=== PATIENT | female | born 1930 | race Caucasian/White ===

== ENCOUNTER 2016-05-03 15:46 | Inpatient (IN) | payer MEDICARE, OTHER ==
[2016-05-03] MEDS ORDERED: HYDROcodone/Acetaminophen 10/325 mg Tablet PO PRN ×2 (20:05→20:27)
[2016-05-03] MEDS ORDERED: Bisacodyl 5 MG TAB PO PRN (20:31)
[2016-05-03] MEDS ORDERED: Non-Formulary Item 1 EACH (Atorvastatin Calcium [Lipitor] 20 MG) PO SCH (21:00)
[2016-05-03] MEDS: Simethicone Chewable 80 MG TAB PO PRN (21:15)
[2016-05-03] MEDS: HYDROcodone/Acetaminophen 10/325 mg Tablet PO PRN (21:15)
[2016-05-03] MEDS: Aspirin 325 MG TAB PO SCH (21:15)
[2016-05-03] MEDS: Montelukast Sodium 10 mg Tablet PO SCH (21:15)
[2016-05-03] MEDS ORDERED: Atorvastatin Calcium 10 MG TAB PO SCH (21:30)
[2016-05-04] MEDS: Levothyroxine Sodium 50 MCG TAB PO SCH (05:56)
[2016-05-04] MEDS ORDERED: GARLIC PO SCH (09:00)
[2016-05-04] MEDS ORDERED: Turmeric Root Extract [Turmeric] 500 MG PO SCH (09:00)
[2016-05-04] MEDS ORDERED: Cranberry [Cranberry] 400 MG PO SCH (09:00)
[2016-05-04] MEDS ORDERED: [UNRECOGNIZED DRUG - OTHER] PO SCH (09:00)
[2016-05-04] MEDS ORDERED: Vit A,C & E/Lutein/Minerals Tablet PO SCH (09:00)
[2016-05-04] MEDS: HYDROcodone/Acetaminophen 10/325 mg Tablet PO PRN ×2 (09:22→13:56)
[2016-05-04] MEDS: Milk Of Magnesia 30 ML UDCUP PO PRN (09:23)
[2016-05-04] MEDS: Aspirin 325 MG TAB PO SCH ×2 (09:24→20:34)
[2016-05-04] MEDS: Hydrochlorothiazide 25 MG TAB PO SCH (09:25)
[2016-05-04] MEDS: Nebivolol HCl 5 MG TAB PO SCH (09:25)
[2016-05-04] MEDS: Simethicone Chewable 80 MG TAB PO PRN (19:18)
[2016-05-04] MEDS: Montelukast Sodium 10 mg Tablet PO SCH (20:35)
[2016-05-04] MEDS: Atorvastatin Calcium 10 MG TAB PO SCH (20:35)
[2016-05-05] MEDS: HYDROcodone/Acetaminophen 10/325 mg Tablet PO PRN ×3 (02:01→22:58)
[2016-05-05] MEDS: Levothyroxine Sodium 50 MCG TAB PO SCH (05:58)
[2016-05-05 06:59] LABS: Hematocrit 32.1 % (36.0-47.0); Mean Platelet Volume 7.3 fL (7.4-10.4); Neutrophil 49 % (42-75); Reactive Lymphocytes 1 % (0-10); Red Blood Cell (RBC) Count 3.65 mill/uL (4.20-5.40); White Blood Cell (WBC) Count 4.3 thou/uL (4.8-10.8)
[2016-05-05] MEDS: Aspirin 325 MG TAB PO SCH ×2 (09:30→21:01)
[2016-05-05] MEDS: Nebivolol HCl 5 MG TAB PO SCH (09:31)
[2016-05-05] MEDS: Hydrochlorothiazide 25 MG TAB PO SCH (09:32)
[2016-05-05] MEDS: Milk Of Magnesia 30 ML UDCUP PO PRN (09:35)
[2016-05-05] MEDS ORDERED: SALINE 0.65% EA NARE PRN (20:14)
[2016-05-05] MEDS: Montelukast Sodium 10 mg Tablet PO SCH (21:02)
[2016-05-05] MEDS: Atorvastatin Calcium 10 MG TAB PO SCH (21:02)
--- NOTE | 2016-05-06 01:00 | HP ---
DATE OF ADMISSION: 05/03/2016 SWING BED ADMIT NOTE: REASON FOR TRANSFER: Physical therapy, occupational therapy, status post right knee replacement. HISTORY OF PRESENT ILLNESS: The patient is an 85-year-old white female extremely pleasant, who had progressive worsening degenerative joint disease of the knee requiring a right knee replacement. Th e patient underwent right knee replacement without complications. She lives alone though and contin ues to need inpatient physical therapy and occupational therapy and will be transferred to [facility] for continued physical therapy and occupational therapy. PAST MEDICAL HISTORY: 1. Hypertension, controlled. 2. Gastroesophageal reflux disease. 3. Degenerative joint disease of the joints. 4. Hypothyroidism. 5. History of thrombocytopenia, not requiring medications. REVIEW OF SYSTEMS: CONSTITUTIONAL: The patient denies fevers, chills, night sweats, and weakness. RESPIRATORY: No significant cough, no sore throat, no URI-like symptoms. NECK: Showed no masses. CARDIOVASCULAR: The patient denies any chest pain nor shortness of breath. GASTROINTESTINAL: The patient denies any significant nausea or vomiting. Appetite is good. She krueger s had some constipation, but has been treated appropriately. GENITOURINARY: The patient denies any dysuria, hematuria or change in urinary frequency. EXTREMITIES: The patient states her right knee pain is controlled with oral medications. SKIN: The patient denies any recent rashes nor new skin lesions. The patient denies any bleeding d isorders. The patient denies any significant depression and she has had no recent visual changes. PHYSICAL EXAMINATION: VITAL SIGNS: Blood pressure 142/68, respiratory rate was 16, pulse was 82. GENERAL: White female, alert and oriented x3, in no obvious distress. HEENT: Atraumatic, normocephalic. Extraocular movements are intact. Pupils are equal, round, and reactive to light and accommodation. Oropharynx, mucous membranes were moist. No exudate, discharg e or lesions. CHEST: Clear to auscultation bilaterally without rales or wheezes. HEART: Regular rate and rhythm. ABDOMEN: Soft, nontender, nondistended, no masses were palpated. EXTREMITIES: Right knee was bandaged. There was some bruising around the knee with some mild swell ing consistent with recent knee replacement. BACK: No CVA or vertebral tenderness. ASSESSMENT AND PLAN: 1. Status post right knee replacement. The patient appears to be doing well. She has good attitud e and should recovered, but will need to continue inpatient swing bed skilled care for OT and PT sin ce she lives alone and has difficulty ambulating at this time and transfer. 2. Hypertension, controlled. Continue current therapy. 3. Hypothyroidism. Continue current medication. 4. Gastroesophageal reflux disease, stable. 5. Mild thrombocytopenia perioperatively. We will manage this and watch her closely. DISPOSITION: Plan will be to discharged to home probably in less than 14 days of inpatient therapy.
[2016-05-06] MEDS: Levothyroxine Sodium 50 MCG TAB PO SCH (05:36)
[2016-05-06] MEDS: Aspirin 325 MG TAB PO SCH ×2 (09:28→20:19)
[2016-05-06] MEDS: Hydrochlorothiazide 25 MG TAB PO SCH (09:29)
[2016-05-06] MEDS: Nebivolol HCl 5 MG TAB PO SCH (09:29)
[2016-05-06] MEDS: HYDROcodone/Acetaminophen 10/325 mg Tablet PO PRN ×2 (09:33→20:19)
[2016-05-06] MEDS: Milk Of Magnesia 30 ML UDCUP PO PRN (20:18)
[2016-05-06] MEDS: Atorvastatin Calcium 10 MG TAB PO SCH (20:19)
[2016-05-06] MEDS: Montelukast Sodium 10 mg Tablet PO SCH (20:19)
[2016-05-07] MEDS: Levothyroxine Sodium 50 MCG TAB PO SCH (05:31)
[2016-05-07] MEDS: HYDROcodone/Acetaminophen 10/325 mg Tablet PO PRN ×3 (09:01→21:00)
[2016-05-07] MEDS: Aspirin 325 MG TAB PO SCH ×2 (09:02→20:56)
[2016-05-07] MEDS: Hydrochlorothiazide 25 MG TAB PO SCH (09:03)
[2016-05-07] MEDS: Nebivolol HCl 5 MG TAB PO SCH (09:03)
[2016-05-07 12:03] VITALS: BMI 25.7
[2016-05-07] MEDS: Montelukast Sodium 10 mg Tablet PO SCH (20:56)
[2016-05-07] MEDS: Atorvastatin Calcium 10 MG TAB PO SCH (20:57)
[2016-05-08] MEDS: Levothyroxine Sodium 50 MCG TAB PO SCH (05:41)
[2016-05-08] MEDS: Aspirin 325 MG TAB PO SCH ×2 (08:35→20:50)
[2016-05-08] MEDS: HYDROcodone/Acetaminophen 10/325 mg Tablet PO PRN ×3 (08:35→20:50)
[2016-05-08] MEDS: Hydrochlorothiazide 25 MG TAB PO SCH (08:36)
[2016-05-08] MEDS: Nebivolol HCl 5 MG TAB PO SCH (08:37)
[2016-05-08] MEDS: Milk Of Magnesia 30 ML UDCUP PO PRN (13:39)
[2016-05-08] MEDS: Montelukast Sodium 10 mg Tablet PO SCH (20:50)
[2016-05-08] MEDS: Atorvastatin Calcium 10 MG TAB PO SCH (20:50)
[2016-05-09] MEDS: Levothyroxine Sodium 50 MCG TAB PO SCH (05:41)
[2016-05-09] MEDS: Aspirin 325 MG TAB PO SCH ×2 (08:47→20:48)
[2016-05-09] MEDS: Nebivolol HCl 5 MG TAB PO SCH (08:48)
[2016-05-09] MEDS: Hydrochlorothiazide 25 MG TAB PO SCH (08:48)
[2016-05-09] MEDS: HYDROcodone/Acetaminophen 10/325 mg Tablet PO PRN ×3 (08:56→20:47)
[2016-05-09] MEDS: Montelukast Sodium 10 mg Tablet PO SCH (20:48)
[2016-05-09] MEDS: Atorvastatin Calcium 10 MG TAB PO SCH (20:48)
[2016-05-10] MEDS: HYDROcodone/Acetaminophen 10/325 mg Tablet PO PRN ×2 (00:47→09:26)
[2016-05-10] MEDS: Levothyroxine Sodium 50 MCG TAB PO SCH (05:34)
[2016-05-10 06:27] VITALS: TEMP 98.6
[2016-05-10] MEDS: Aspirin 325 MG TAB PO SCH (09:22)
[2016-05-10] MEDS: Hydrochlorothiazide 25 MG TAB PO SCH (09:23)
[2016-05-10] MEDS: Nebivolol HCl 5 MG TAB PO SCH (09:23)
[2016-05-10 09:28] VITALS: BP 122/62
== END 2016-05-10 11:00 | disposition home health service (06) | DRG 561 ==
LOC: BURMED 18:45
PROVIDERS: ADMIT Family Medicine; ATTEND Family Medicine
DX: Z47.1 Aftercare following joint replacement surgery (principal); D69.6 Thrombocytopenia, unspecified; Z96.651 Presence of right artificial knee joint; M17.11 Unilateral primary osteoarthritis, right knee; I10 Essential (primary) hypertension; K21.9 Gastro-esophageal reflux disease without esophagitis; E03.9 Hypothyroidism, unspecified
CPT/HCPCS: 36415; 85007; 85027; G8978-GP-CJ; G8979-GP-CI; G8987-GO-CJ; G8988-GO-CI

== ENCOUNTER 2016-09-08 10:02 | Emergency (ER) | payer MEDICARE, OTHER ==
[2016-09-08 10:45] LABS: Eosinophils 3 % (0-10); Hemoglobin 12.6 g/dL (12.0-16.0); Lymphocytes 35 % (21-51); MDiff Complete? YES; Mean Corpuscular HGB CONC 33.4 g/dL (32.0-36.0); Mean Corpuscular Hemoglobin 30.3 pg (27.0-31.0); Mean Corpuscular Volume 90.6 fl (81.0-99.0); Mean Platelet Volume 8.4 fL (7.4-10.4); Monocytes 8 % (0-10); Neutrophil 54 % (42-75); Platelet Count 169 thou/uL (130-400); RBC Distribution Width 14.8 % (11.5-14.5); Red Blood Cell (RBC) Count 4.17 mill/uL (4.20-5.40); White Blood Cell (WBC) Count 4.9 thou/uL (4.8-10.8)
[2016-09-08 10:52] LABS: CKMB 1.9 ng/mL (0-6.6); Troponin I Less than 0.010 ng/mL (< 0.028)
[2016-09-08 10:52] LABS: ALT (SGPT) 23 U/L (8-55); AST (SGOT) 27 U/L (5-34); Albumin 4.1 g/dL (3.4-4.8); Alkaline Phosphatase 86 U/L (40-150); Anion Gap 16 mmol/L (10-20); BUN (Urea Nitrogen) 30 mg/dL (9.8-20.1); Bilirubin, Total 0.3 mg/dL (0.2-1.2); Calc. Creatinine Clearance 0 mL/min (70-130); Carbon Dioxide 25 mmol/L (23-31); Chloride 102 mmol/L (98-107); Estimated GFR-MDRD 74; Globulin 3.2 g/dL (2.4-3.5); Glucose 105 mg/dL (83-110); Potassium 4.3 mmol/L (3.5-5.1); Protein, Total 7.3 g/dL (6.0-8.3); Sodium 139 mmol/L (136-145)
[2016-09-08] MEDS ORDERED: methylPREDNISolone Sod Succ/PF 125 MG/2 ML VIAL ONE (11:27)
[2016-09-08] MEDS ORDERED: Azithromycin 250 MG TAB ONE (11:27)
--- NOTE | 2016-09-08 12:02 | RAD ---
PORTABLE CHEST: Date: 09/08/16 An AP portable film at 1026 hours is compared with a 03/25/07 study done at [facility]. FINDINGS: The heart is normal in size. There is no vascular congestion, edema, or pleural effusion. No lobar c onsolidation seen. Trachea is midline. IMPRESSION: No acute thoracic findings. POS: HOME
== END 2016-09-08 11:47 | disposition home or self-care (01) ==
LOC: BURERS 10:02
DX: J30.2 Other seasonal allergic rhinitis (principal); J06.9 Acute upper respiratory infection, unspecified; E11.9 Type 2 diabetes mellitus without complications; E78.5 Hyperlipidemia, unspecified; E78.00 Pure hypercholesterolemia, unspecified; I10 Essential (primary) hypertension; Z79.899 Other long term (current) drug therapy; Z79.82 Long term (current) use of aspirin
CPT/HCPCS: 36415; 71010; 80053; 82553; 83880; 84484; 85025; 93005; 94760; 96374; J2930

== ENCOUNTER 2016-10-16 10:46 | Outpatient (CLI) | payer MEDICARE, OTHER ==
--- NOTE | 2016-10-16 22:38 | RAD ---
RIGHT KNEE THREE VIEWS 10/16/16 No prior films were available for comparison. A total knee arthroplasty is present. There is no sign of loosening or infection of the hardware. No large joint effusion was seen. The patella, however, may have a horizontal fracture line within it. There is a gap between the upper and lower fragments on the lateral view. This may not be acute as there ought to be a significant joint effusion if this was recent. IMPRESSION: 1. Normal postoperative appearance of knee replacement. 2. Cleft through the patella as noted above. POS: HOME
== END 2016-10-16 10:47 | disposition home or self-care (01) ==
LOC: BURRAD 10:46
PROVIDERS: ATTEND Orthopaedic Surgery
DX: Z96.651 Presence of right artificial knee joint (principal)

== ENCOUNTER 2017-02-14 14:11 | Emergency (ER) | payer MEDICARE, OTHER ==
--- NOTE | 2017-02-14 15:46 | RAD ---
LEFT RIBS WITH PA CHEST: Date: 02-14-17 No fracture was visible. Subtle fractures might be missed on this study, particularly in the lower ri bs. There is no pneumothorax, pleural effusion or signs of focal pulmonary infiltrate. The lungs are clear. The heart size is normal. The paravertebral soft tissues appear normal. IMPRESSION: No acute traumatic finding. POS: HOME
== END 2017-02-14 15:01 | disposition home or self-care (01) ==
LOC: BURERS 14:11
DX: S22.32XA Fracture of one rib, left side, initial encounter for closed fracture (principal); E11.9 Type 2 diabetes mellitus without complications; E78.5 Hyperlipidemia, unspecified; I10 Essential (primary) hypertension; Z79.82 Long term (current) use of aspirin; Z79.899 Other long term (current) drug therapy; W10.9XXA Fall (on) (from) unspecified stairs and steps, initial encounter

== ENCOUNTER 2017-03-13 08:30 | Outpatient (CLI) | payer MEDICARE, OTHER ==
--- NOTE | 2017-03-13 17:17 | ULT ---
ABDOMINAL AORTA OF 03/13/17. HISTORY: Ultrasonography of the abdomen was performed for evaluation of right-sided pain. FINDINGS: The liver and spleen were normal in size and appearance. Hepatic portal venous flow was towards the liver as expected. There are no dilated ducts. The gallbladder contained no signs of stones or wall thickening. Common bile duct was a normal 5-6 mm in caliber. The pancreas was partially obscured b y gas, but the visible areas appear normal. The inferior vena cava and aorta were unremarkable. The right kidney was 10.1 cm in length and the left was 12.6 cm. No mass or hydronephrosis was seen in either. IMPRESSION: No acute abdominal findings. POS: HOME
== END 2017-03-13 08:31 | disposition home or self-care (01) ==
LOC: BURULT 08:30
PROVIDERS: ATTEND Physician Assistant
DX: R10.9 Unspecified abdominal pain (principal)
CPT/HCPCS: 76700

== ENCOUNTER 2017-05-24 10:11 | Outpatient (CLI) | payer MEDICARE, OTHER ==
--- NOTE | 2017-05-24 15:16 | RAD ---
RIGHT KNEE 3 VIEWS: Date: 05/24/17 HISTORY: Postoperative exam. Arthroplasty. FINDINGS: Right knee arthroplasty is identified. No perihardware lucency. No malalignment or fracture. IMPRESSION: Findings compatible with right knee arthroplasty. POS: PAM
== END 2017-05-24 10:12 | disposition home or self-care (01) ==
LOC: BURRAD 10:11
PROVIDERS: ATTEND Orthopaedic Surgery
DX: Z47.1 Aftercare following joint replacement surgery (principal); Z96.651 Presence of right artificial knee joint

== ENCOUNTER 2017-05-28 09:49 | Outpatient (CLI) | payer MEDICARE, OTHER ==
--- NOTE | 2017-05-28 14:45 | RAD ---
LEFT KNEE THREE VIEWS: Date: 05-28-17 Comparison: 03-31-07 FINDINGS: A total knee arthroplasty is present. There is no sign of loosening or infection. No fracture was see n. No joint effusion was indicated. The bony structures appear normal. IMPRESSION: No acute findings. POS: HOME
== END 2017-05-28 09:50 | disposition home or self-care (01) ==
LOC: BURRAD 09:49
PROVIDERS: ATTEND Orthopaedic Surgery
DX: M25.562 Pain in left knee (principal)

== ENCOUNTER 2017-11-25 20:09 | Emergency (ER) | payer MEDICARE, OTHER ==
[2017-11-25 20:33] LABS: Bilirubin Negative (Negative); Blood, Urine Negative (Negative); Clarity Clear (Clear); Glucose, Urine (Dipstick) Negative (Negative); Leukocyte Trace (Negative); Nitrite Negative (Negative); Protein, Urine (Dipstick) Negative (Neg-Trace); Urobilinogen 0.2 mg/dL (0.2-1.0); pH, Urine 5.5 (5.0-9.0)
[2017-11-25 20:42] LABS: Bacteria/HPF Rare-Few HPF (None Seen); Crystals/HPF None Seen HPF (Negative); Hyaline Casts/LPF NONE SEEN LPF (0-3 Hyaline); Other Casts/LPF None Seen LPF (0-3 Hyaline); Oval Fat Bodies/HPF None Seen HPF (None Seen); RBC/HPF None Seen HPF (0-3); Renal Epithelial None Seen HPF (0-3); Sperm/HPF None Seen HPF (None Seen); Squamous Epithelial None Seen HPF (0-3); Transitional Epithelial NONE SEEN HPF (0-3); Trichomonas/HPF None Seen HPF (None Seen); WBC/HPF 0-3 HPF (0-3); Yeast-All Forms None Seen HPF (None Seen)
[2017-11-25 20:50] LABS: #Basophils 0.1 thou/uL (0.0-0.2); #Eosinphils 0.1 thou/uL (0.0-0.7); #Monocytes 0.7 thou/uL (0.11-0.59); #Neutrophils 6.6 thou/uL (1.40-6.50); %Eosinophils 1.2 % (0.0-10.0); %Lymphocytes 12.1 % (21.0-51.0); %Monocytes 7.9 % (0.0-10.0); %Neutrophils 77.7 % (42.0-75.0); Hemoglobin 11.9 g/dL (12.0-16.0); Mean Corpuscular HGB CONC 34.5 g/dL (32.0-36.0); Mean Corpuscular Hemoglobin 31.2 pg (27.0-31.0); Mean Corpuscular Volume 90.4 fL (78.0-98.0); Mean Platelet Volume 9.6 fL (7.4-10.4); Platelet Count 187 thou/uL (130-400); RBC Distribution Width 12.8 % (11.5-14.5); White Blood Cell (WBC) Count 8.5 thou/uL (4.8-10.8)
[2017-11-25 21:08] LABS: ALT (SGPT) 15 U/L (8-55); AST (SGOT) 18 U/L (5-34); Albumin 4.2 g/dL (3.4-4.8); Alkaline Phosphatase 67 U/L (40-150); Anion Gap 14 mmol/L (10-20); BUN (Urea Nitrogen) 31 mg/dL (9.8-20.1); Bilirubin, Total Less than 0.2 mg/dL (0.2-1.2); Calc. Creatinine Clearance 0 mL/min (70-130); Calcium 9.3 mg/dL (7.8-10.44); Carbon Dioxide 24 mmol/L (23-31); Chloride 104 mmol/L (98-107); Estimated GFR-MDRD 54; Globulin 2.6 g/dL (2.4-3.5); Glucose 168 mg/dL (83-110); Lipase 37 U/L (8-78); Potassium 3.8 mmol/L (3.5-5.1); Protein, Total 6.8 g/dL (6.0-8.3); Sodium 138 mmol/L (136-145)
[2017-11-25] MEDS ORDERED: Sulfameth/Trimethoprim DS 800-160mg TAB ONE (22:12)
[2017-11-25] MEDS ORDERED: metroNIDAZOLE 250 MG TAB ONE (22:12)
[2017-11-25] MEDS ORDERED: Metoclopramide HCl 10 MG/2 ML VIAL ONE (22:23)
--- NOTE | 2017-11-25 23:31 | CT ---
CT ABDOMEN AND PELVIS WITH CONTRAST: 11/25/2017 HISTORY/TECHNIQUE A spiral CT of the abdomen and pelvis was performed for evaluation of low abdominal pain. Axial slic es were acquired and then coronal and sagittal reconstructions were done. FINDINGS: ABDOMEN: The lung bases are clear. Some coronary artery calcifications are seen in the LAD. The liver and spleen are normal in size. A small subcentimeter cyst is suggested in the right lobe o f the liver. The adrenal glands and kidneys are unremarkable in appearance. The abdominal aorta is densely calcified but shows no aneurysm. The stomach and duodenum are fluid-filled. Fluid-filled loops of proximal to mid small bowel are see n, though none are greatly distended, nor is there significant wall thickening. The major intestinal finding is severe diverticulosis, worst in the sigmoid region. There is an area in the low sigmoid/ rectal region that has a little bit of streaking around it that may be early diverticulitis. No free air or free fluid is seen on the exam. PELVIS: Remarkable for the changes listed above. No pelvic masses, fluid collections, or acute ny ges are seen otherwise. There is severe degenerative change in the lumbar spine. In particular, there is spondylolisthesis o f L4 on L5 and of L5 on S1 that appears to be due to severe facet arthritis. Multilevel degenerative disk disease is present, most significant at L2-L3, L4-L5, and L5-S1. T11 and T12 also probably has a degenerated disk and certainly has significant degenerative change. IMPRESSION: 1. Severe diverticulosis with some haziness in the low sigmoid/rectal region. Mild diverticulitis i s suspected. This would correlate with the site of the patient's pain. 2. Fluid-filled stomach and fluid-filled loops of small bowel without significant dilation. This co uld merely be an ileus. To consider entities such as gastroenteritis, I would have liked to have see n a little more wall thickening, which I do not. POS: HOME
== END 2017-11-25 23:00 | disposition home or self-care (01) ==
LOC: BURERS 20:09
DX: K57.32 Diverticulitis of large intestine without perforation or abscess without bleeding (principal); K56.7 Ileus, unspecified; E11.9 Type 2 diabetes mellitus without complications; E78.5 Hyperlipidemia, unspecified; I10 Essential (primary) hypertension
CPT/HCPCS: 74177; 80053; 81003; 81015; 83690; 85025; J2765

== ENCOUNTER 2017-12-03 10:40 | Emergency (ER) | payer MEDICARE, OTHER ==
[2017-12-03 11:30] LABS: ALT (SGPT) 19 U/L (8-55); AST (SGOT) 26 U/L (5-34); Albumin 4.4 g/dL (3.4-4.8); Alkaline Phosphatase 55 U/L (40-150); Anion Gap 14 mmol/L (10-20); BUN (Urea Nitrogen) 33 mg/dL (9.8-20.1); Bilirubin, Total 0.4 mg/dL (0.2-1.2); Calc. Creatinine Clearance 0 mL/min (70-130); Calcium 9.6 mg/dL (7.8-10.44); Carbon Dioxide 24 mmol/L (23-31); Chloride 98 mmol/L (98-107); Estimated GFR-MDRD 34; Globulin 2.5 g/dL (2.4-3.5); Glucose 113 mg/dL (83-110); Potassium 4.7 mmol/L (3.5-5.1); Protein, Total 6.9 g/dL (6.0-8.3); Sodium 131 mmol/L (136-145)
[2017-12-03 11:56] LABS: #Basophils 0.1 thou/uL (0.0-0.2); #Lymphocytes 0.8 thou/uL (1.20-3.40); #Monocytes 0.4 thou/uL (0.11-0.59); #Neutrophils 2.8 thou/uL (1.40-6.50); %Eosinophils 0.9 % (0.0-10.0); %Lymphocytes 19.9 % (21.0-51.0); %Monocytes 9.3 % (0.0-10.0); %Neutrophils 67.9 % (42.0-75.0); Hemoglobin 11.9 g/dL (12.0-16.0); Mean Corpuscular HGB CONC 34.1 g/dL (32.0-36.0); Mean Corpuscular Volume 87.9 fL (78.0-98.0); Mean Platelet Volume 8.6 fL (7.4-10.4); Platelet Count 191 thou/uL (130-400); RBC Distribution Width 12.5 % (11.5-14.5); Red Blood Cell (RBC) Count 3.97 mill/uL (4.20-5.40); White Blood Cell (WBC) Count 4.2 thou/uL (4.8-10.8)
== END 2017-12-03 12:41 | disposition home or self-care (01) ==
LOC: BURERS 10:40
DX: E86.9 Volume depletion, unspecified (principal); R42 Dizziness and giddiness; N28.9 Disorder of kidney and ureter, unspecified; E78.5 Hyperlipidemia, unspecified; I10 Essential (primary) hypertension; E03.9 Hypothyroidism, unspecified; K21.9 Gastro-esophageal reflux disease without esophagitis; F41.9 Anxiety disorder, unspecified; Z79.899 Other long term (current) drug therapy; Z79.82 Long term (current) use of aspirin
CPT/HCPCS: 36415; 80053; 83605; 85025; 87040; 87086; 96360

== ENCOUNTER 2019-01-14 21:48 | Emergency (ER) | payer MEDICARE, OTHER ==
[2019-01-14 22:54] LABS: #Eosinphils 0.1 thou/uL (0.0-0.7); #Lymphocytes 1.6 thou/uL (1.20-3.40); #Monocytes 0.4 thou/uL (0.11-0.59); #Neutrophils 2.6 thou/uL (1.40-6.50); %Eosinophils 1.5 % (0.0-10.0); %Lymphocytes 33.4 % (21.0-51.0); %Monocytes 8.9 % (0.0-10.0); %Neutrophils 55.2 % (42.0-75.0); Hemoglobin 12.5 g/dL (12.0-16.0); Mean Corpuscular Hemoglobin 29.5 pg (27.0-31.0); Mean Corpuscular Volume 92.2 fL (78.0-98.0); Mean Platelet Volume 7.7 fL (7.4-10.4); Platelet Count 140 thou/uL (130-400); RBC Distribution Width 12.3 % (11.5-14.5); Red Blood Cell (RBC) Count 4.22 mill/uL (4.20-5.40); White Blood Cell (WBC) Count 4.6 thou/uL (4.8-10.8)
[2019-01-14 23:01] LABS: Bilirubin Negative (Negative); Blood, Urine Trace (Negative); Clarity Clear (Clear); Glucose, Urine (Dipstick) Negative (Negative); Leukocyte Negative (Negative); Nitrite Negative (Negative); Protein, Urine (Dipstick) Negative (Neg-Trace); Urobilinogen 0.2 mg/dL (Less than 2)
[2019-01-14 23:08] LABS: ALT (SGPT) 14 U/L (8-55); AST (SGOT) 19 U/L (5-34); Albumin 4.5 g/dL (3.4-4.8); Alkaline Phosphatase 67 U/L (40-110); Anion Gap 14 mmol/L (10-20); BUN (Urea Nitrogen) 19 mg/dL (9.8-20.1); Bilirubin, Total 0.6 mg/dL (0.2-1.2); Calc. Creatinine Clearance 0 mL/min (70-130); Carbon Dioxide 26 mmol/L (23-31); Chloride 98 mmol/L (98-107); Estimated GFR-MDRD 70; Globulin 2.7 g/dL (2.4-3.5); Glucose 90 mg/dL (83-110); Potassium 3.9 mmol/L (3.5-5.1); Protein, Total 7.2 g/dL (6.0-8.3); Sodium 134 mmol/L (136-145)
[2019-01-14 23:10] LABS: RBC/HPF 0-3 HPF (0-3); Squamous Epithelial 0-3 HPF (0-3); WBC/HPF 0-3 HPF (0-3)
--- NOTE | 2019-01-15 08:05 | RAD ---
CHEST 2 VIEWS: DATE: 01/14/2019. FINDINGS: Comparison is made with the 02/14/2017 study. The heart is normal in size and the lungs are clear. No definite infiltrate or effusion was seen. T he lungs are mildly hyperexpanded. There is some narrowing of the acromiohumeral space on the right which could lead to rotator cuff issues. IMPRESSION: No acute findings. POS: HOME
== END 2019-01-14 23:46 | disposition home or self-care (01) ==
LOC: BURERS 21:48
DX: J06.9 Acute upper respiratory infection, unspecified (principal); I10 Essential (primary) hypertension; E78.5 Hyperlipidemia, unspecified; E78.00 Pure hypercholesterolemia, unspecified; E03.9 Hypothyroidism, unspecified; K21.9 Gastro-esophageal reflux disease without esophagitis; F41.9 Anxiety disorder, unspecified; Z79.899 Other long term (current) drug therapy; Z79.82 Long term (current) use of aspirin
CPT/HCPCS: 71046; 80053; 81003; 81015; 83605; 85025; 87804; 94760

== ENCOUNTER 2019-09-23 09:13 | Outpatient (CLI) | payer MEDICARE, OTHER ==
--- NOTE | 2019-09-23 18:31 | RAD ---
RIGHT FOOT THREE VIEWS: 09/23/19 There is an oblique fracture of the proximal phalanx of the fifth toe. There is little displacement. Mild hallux valgus with bunion deformity is present. No other bony anomalies of concern were noted. IMPRESSION: Acute fracture of the proximal phalanx of the fifth toe. POS: HOME
== END 2019-09-23 09:14 | disposition home or self-care (01) ==
LOC: BURRAD 09:13
PROVIDERS: ATTEND Family Medicine
DX: S90.31XA Contusion of right foot, initial encounter (principal); S92.511A Displaced fracture of proximal phalanx of right lesser toe(s), initial encounter for closed fracture

== ENCOUNTER 2020-03-23 09:35 | Emergency (ER) | payer MEDICARE, OTHER ==
[2020-03-23 10:46] LABS: #Basophils 0.1 thou/uL (0.0-0.2); #Eosinphils 0.1 thou/uL (0.0-0.7); #Lymphocytes 0.9 thou/uL (1.20-3.40); #Monocytes 0.3 thou/uL (0.11-0.59); #Neutrophils 3.5 thou/uL (1.40-6.50); %Basophils 1.5 % (0.0-1.0); %Eosinophils 1.4 % (0.0-10.0); %Lymphocytes 17.8 % (21.0-51.0); %Monocytes 6.5 % (0.0-10.0); %Neutrophils 72.8 % (42.0-75.0); Hemoglobin 13.1 g/dL (12.0-16.0); Mean Corpuscular HGB CONC 32.8 g/dL (32.0-36.0); Mean Corpuscular Hemoglobin 29.4 pg (27.0-31.0); Mean Corpuscular Volume 89.8 fL (78.0-98.0); Mean Platelet Volume 7.4 fL (7.4-10.4); Platelet Count 183 thou/uL (130-400); RBC Distribution Width 12.9 % (11.5-14.5); Red Blood Cell (RBC) Count 4.44 mill/uL (4.20-5.40); White Blood Cell (WBC) Count 4.8 thou/uL (4.8-10.8)
[2020-03-23 10:53] LABS: INR-International Normal Ratio 0.9; Prothrombin Time 12.3 sec (12.0-14.7)
[2020-03-23 11:03] LABS: ALT (SGPT) 18 U/L (8-55); AST (SGOT) 21 U/L (5-34); Albumin 4.4 g/dL (3.4-4.8); Alkaline Phosphatase 82 U/L (40-110); Anion Gap 15 mmol/L (10-20); BUN (Urea Nitrogen) 23 mg/dL (9.8-20.1); Bilirubin, Total 0.3 mg/dL (0.2-1.2); Calc. Creatinine Clearance 0 mL/min (70-130); Calcium 9.1 mg/dL (7.8-10.44); Carbon Dioxide 26 mmol/L (23-31); Chloride 100 mmol/L (98-107); Globulin 2.7 g/dL (2.4-3.5); Glucose 109 mg/dL (83-110); Potassium 3.8 mmol/L (3.5-5.1); Protein, Total 7.1 g/dL (6.0-8.3); Sodium 137 mmol/L (136-145)
[2020-03-23] MEDS ORDERED: Aspirin Chewable 81 MG TAB ONE (11:42)
[2020-03-23 12:12] LABS: Bilirubin Negative (Negative); Blood, Urine Negative (Negative); Clarity Clear (Clear); Glucose, Urine (Dipstick) Negative (Negative); Ketone, Urine Negative (Negative); Leukocyte Negative (Negative); Nitrite Negative (Negative); Protein, Urine (Dipstick) Negative (Neg-Trace); Specific Gravity, Urine 1.015 (1.005-1.030); Urobilinogen 0.2 mg/dL (Less than 2); pH, Urine 7.5 (5.0-9.0)
--- NOTE | 2020-03-23 16:41 | CT ---
CT OF THE BRAIN WITHOUT CONTRAST: 03/23/20 The ventricles are normal in size for age. There are some mild chronic ischemic change present in the deep white matter, but there were no findings of acute stroke, mass or edema. No bleeding was seen. The skull is normal in appearance. IMPRESSION: No acute intracranial findings. Preliminary reports called to Elizabeth in ER at 1056 on 03/23/20. POS: HOME
--- NOTE | 2020-03-23 16:42 | RAD ---
PORTABLE CHEST: 03/23/20 Comparison is made with the 09/06/16 study. The heart is normal in size and the lungs are clear. No infiltrate, effusion, or congestion was seen. The bony structures showed no acute change. IMPRESSION: No acute thoracic finding. POS: HOME
== END 2020-03-23 13:48 | disposition home or self-care (01) ==
LOC: BURERS 09:35
DX: R42 Dizziness and giddiness (principal); Z79.899 Other long term (current) drug therapy; E78.5 Hyperlipidemia, unspecified; E78.00 Pure hypercholesterolemia, unspecified; I10 Essential (primary) hypertension; E03.9 Hypothyroidism, unspecified; K21.9 Gastro-esophageal reflux disease without esophagitis
CPT/HCPCS: 36415; 70450; 71045; 80053; 81003; 83880; 84484; 85025; 85610; 93005

== ENCOUNTER 2020-07-29 13:35 | Emergency (ER) | payer MEDICARE, OTHER ==
[2020-07-29 15:22] LABS: #Basophils 0.1 thou/uL (0.0-0.2); #Eosinphils 0.1 thou/uL (0.0-0.7); #Lymphocytes 1.1 thou/uL (1.20-3.40); #Monocytes 0.5 thou/uL (0.11-0.59); #Neutrophils 4.1 thou/uL (1.40-6.50); %Lymphocytes 19.4 % (21.0-51.0); %Monocytes 7.8 % (0.0-10.0); %Neutrophils 70.9 % (42.0-75.0); Hemoglobin 12.6 g/dL (12.0-16.0); Mean Corpuscular HGB CONC 34.8 g/dL (32.0-36.0); Mean Corpuscular Hemoglobin 31.5 pg (27.0-31.0); Mean Corpuscular Volume 90.7 fL (78.0-98.0); Mean Platelet Volume 8.1 fL (7.4-10.4); Platelet Count 208 thou/uL (130-400); RBC Distribution Width 12.3 % (11.5-14.5); White Blood Cell (WBC) Count 5.8 thou/uL (4.8-10.8)
[2020-07-29 15:26] LABS: INR-International Normal Ratio 0.9; Prothrombin Time 12.6 sec (12.0-14.7)
[2020-07-29 15:35] LABS: ALT (SGPT) 18 U/L (8-55); AST (SGOT) 21 U/L (5-34); Albumin 4.3 g/dL (3.4-4.8); Alkaline Phosphatase 80 U/L (40-110); Anion Gap 16 mmol/L (10-20); BUN (Urea Nitrogen) 18 mg/dL (9.8-20.1); Bilirubin, Total 0.4 mg/dL (0.2-1.2); Calc. Creatinine Clearance 0 mL/min (70-130); Calcium 9.5 mg/dL (7.8-10.44); Carbon Dioxide 25 mmol/L (23-31); Chloride 97 mmol/L (98-107); Glucose 118 mg/dL (83-110); Potassium 3.9 mmol/L (3.5-5.1); Protein, Total 7.3 g/dL (5.8-8.1); Sodium 134 mmol/L (136-145)
[2020-07-29] MEDS ORDERED: Aspirin Chewable 81 MG TAB ONE ×2 (15:37→15:39)
== END 2020-07-29 16:35 | disposition home or self-care (01) ==
LOC: BURERS 13:35
DX: G45.9 Transient cerebral ischemic attack, unspecified (principal); K21.9 Gastro-esophageal reflux disease without esophagitis; E78.5 Hyperlipidemia, unspecified; I10 Essential (primary) hypertension; E03.9 Hypothyroidism, unspecified
CPT/HCPCS: 36415; 70450; 80053; 85025; 85610; 93005

== ENCOUNTER 2020-09-14 16:19 | Emergency (ER) | payer MEDICARE, OTHER ==
[2020-09-14 16:43] LABS: #Basophils 0.1 thou/uL (0.0-0.2); #Lymphocytes 1.2 thou/uL (1.20-3.40); #Monocytes 0.6 thou/uL (0.11-0.59); %Basophils 1.5 % (0.0-1.0); %Eosinophils 0.6 % (0.0-10.0); %Lymphocytes 17.4 % (21.0-51.0); %Neutrophils 72.4 % (42.0-75.0); Hemoglobin 12.3 g/dL (12.0-16.0); Mean Corpuscular HGB CONC 32.8 g/dL (32.0-36.0); Mean Corpuscular Hemoglobin 30.7 pg (27.0-31.0); Mean Corpuscular Volume 93.6 fL (78.0-98.0); Mean Platelet Volume 7.4 fL (7.4-10.4); Platelet Count 232 thou/uL (130-400); RBC Distribution Width 12.2 % (11.5-14.5); Red Blood Cell (RBC) Count 4.02 mill/uL (4.20-5.40); White Blood Cell (WBC) Count 6.8 thou/uL (4.8-10.8)
[2020-09-14 16:57] LABS: ALT (SGPT) 19 U/L (8-55); AST (SGOT) 24 U/L (5-34); Albumin 4.3 g/dL (3.4-4.8); Alkaline Phosphatase 75 U/L (40-110); Anion Gap 17 mmol/L (10-20); BUN (Urea Nitrogen) 19 mg/dL (9.8-20.1); Bilirubin, Total 0.4 mg/dL (0.2-1.2); Calc. Creatinine Clearance 0 mL/min (70-130); Calcium 9.4 mg/dL (7.8-10.44); Carbon Dioxide 25 mmol/L (23-31); Chloride 96 mmol/L (98-107); Globulin 3.1 g/dL (2.4-3.5); Glucose 104 mg/dL (83-110); Potassium 3.8 mmol/L (3.5-5.1); Protein, Total 7.4 g/dL (5.8-8.1); Sodium 134 mmol/L (136-145)
== END 2020-09-14 17:47 | disposition home or self-care (01) ==
LOC: BURERS 16:19
DX: R00.2 Palpitations (principal); K21.9 Gastro-esophageal reflux disease without esophagitis; E78.5 Hyperlipidemia, unspecified; E78.00 Pure hypercholesterolemia, unspecified; E03.9 Hypothyroidism, unspecified; I10 Essential (primary) hypertension; Z79.899 Other long term (current) drug therapy; Z79.82 Long term (current) use of aspirin
CPT/HCPCS: 71045; 80053; 83880; 84484; 85025; 93005